=== PATIENT | male | born 1970 | race American Indian/Alaskan Native ===

== ENCOUNTER 2019-01-29 10:34 | Emergency (ER) | payer OTHER ==
[2019-01-29] MEDS ORDERED: ASPIRIN PO ONE (10:50)
[2019-01-29 11:15] LABS: Basophils % (Auto) 0.6 % (0.0-1.8); Eosinophils # (Auto) 0.2 K/mm3 (0.0-0.4); Eosinophils % (Auto) 2.1 % (0.0-4.3); Hematocrit 39.2 % (35.5-45.6); Hemoglobin 13.7 gm/dl (11.8-15.2); Lymphocytes # (Auto) 2.3 K/mm3 (1.2-5.4); Lymphocytes % (Auto) 28.7 % (13.4-35.0); Mean Corpuscular HGB Conc 35 % (32-34); Mean Corpuscular Volume 88 fl (84-94); Monocytes # (Auto) 0.7 K/mm3 (0.0-0.8); Monocytes % (Auto) 8.7 % (0.0-7.3); Platelet Count 323 K/mm3 (140-440); Red Blood Count 4.46 M/mm3 (3.65-5.03); Red Cell Distribution Width 15.9 % (13.2-15.2)
[2019-01-29 11:29] LABS: BUN/Creatinine Ratio 14; Blood Urea Nitrogen 14 mg/dL (9-20); Calcium 9.7 mg/dL (8.4-10.2); Hemolysis Index 11
--- NOTE | 2019-01-29 11:40 | Emergency Department Report ---
ED Chest Pain HPI - General Chief Complaint: Chest Pain Stated Complaint: CHEST AND BACK PAIN Time Seen by Provider: 01/29/19 11:23 Source: patient Mode of arrival: Ambulatory Limitations: No Limitations - History of Present Illness Initial Comments: 48-year-old -[place] male presents to the emergency department with complaint of some pain to the left upper back that has been radiating around to the left side of the chest. This started about 3 days ago and has been pretty constant with throbbing pain. However at the time of my examination the chest pain has resolved and the patient just has the throbbing back pain. He has tried some Tums, Maalox, and some other jqic-btw-mofaheu pain medication without any relief. He is a former smoker. He has a history of hypertension. He goes to [facility] for primary care. He has some questionable family history of cardiac disease with a sister who has a pacemaker. Recent travel or sick contacts at home. He denies any shortness of breath, fever, nausea, vomiting, diaphoresis or lower extremity edema. - Related Data Allergies Allergy/AdvReac Type Severity Reaction Status Date / Time No Known Allergies Allergy Unverified 01/29/19 10:35 Heart Score - HEART Score History: Slightly suspicious EKG: Normal Age: 45-65 Risk factors: 1-2 risk factors Troponin: < normal limit HEART Score: 2 - Critical Actions Critical Actions: 0-3 pts:0.9-1.7%risk of adverse cardiac event.Candidate for discharge ED Review of Systems ROS: Stated complaint: CHEST AND BACK PAIN Other details as noted in HPI Comment: All other systems reviewed and negative Constitutional: denies: chills, fever Eyes: denies: eye pain, vision change ENT: denies: ear pain, throat pain Respiratory: denies: cough, shortness of breath Cardiovascular: chest pain. denies: palpitations Gastrointestinal: denies: abdominal pain, vomiting Genitourinary: denies: dysuria, discharge Musculoskeletal: back pain. denies: arthralgia Skin: denies: rash, lesions Neurological: denies: headache, weakness ED Past Medical Hx - Past Medical History Hx Hypertension: Yes - Surgical History Past Surgical History?: No - Social History Smoking Status: Former Smoker Substance Use Type: Prescribed ED Physical Exam - General Limitations: No Limitations - Other Other exam information: GENERAL: The patient is well-developed well-nourished. HENT: Normocephalic. Atraumatic. Patient has moist mucous membranes. EYES: Extraocular motions are intact. NECK: Supple. Trachea is midline. CHEST/LUNGS: Clear to auscultation. There is no respiratory distress noted. HEART/CARDIOVASCULAR: Regular. There is no tachycardia. There is no murmur. ABDOMEN: Abdomen is soft, nontender. Patient has normal bowel sounds. There is no abdominal distention. SKIN: Skin is warm and dry. NEURO: The patient is awake, alert, and oriented. The patient is cooperative. The patient has no focal neurologic deficits. The patient has normal speech. MUSCULOSKELETAL: There is no tenderness or deformity. There is no limitation range of motion. There is no evidence of acute injury. BACK: No midline thoracic or lumbar tenderness to palpation, step-off or deformity. ED Course Vital Signs 01/29/19 01/29/19 10:48 15:06 Temperature 98.1 F Pulse Rate 84 67 Respiratory 18 20 Rate Blood Pressure 151/99 Blood Pressure 159/110 [Right] O2 Sat by Pulse 99 Oximetry RIKI score - Riki Score Age > 65: (0) No Aspirin use within the Past 7 Days: (0) No 3 or more CAD Risk Factors: (0) No 2 or more Angina events in past 24 hrs: (1) Yes Known CAD with more than 50% Stenosis: (0) No Elevated Cardiac Markers: (0) No ST Deviation Greater than 0.5mm: (0) No RIKI Score: 1 ED Medical Decision Making - Lab Data Result diagrams: 01/29/19 11:01 01/29/19 11:01 - EKG Data -: EKG Interpreted by Ks EKG shows normal: sinus rhythm, axis, intervals, QRS complexes, ST-T waves Rate: normal - EKG Data When compared to previous EKG there are: previous EKG unavailable Interpretation: normal EKG - Radiology Data Radiology results: image reviewed interpreted by me: Chest x-ray does not show any acute process. There are no pleural effusions, obvious pneumonia and there is no pneumothorax. - Medical Decision Making This patient presents to the emergency department with a three-day history of some pain to the left upper back, towards the inside of the scapula, that radiates around to the chest. No complaints of any shortness of breath, nausea, vomiting or diaphoresis. EKG is normal without ST elevation VT, ischemia or dysrhythmia. Patient's labs have been unremarkable including negative troponins 2 and a negative d-dimer. Chest x-ray did not show any pneumonia, pleural effusions, pneumothorax, focal consolidation, or any other acute process. The patient's only risk factors are hypertension and some questionable family history. He is low on the heart score criteria and low RIKI score. His back pain seems to be the more consistent issue with some intermittent radiation to the chest. He appears safe for discharge home at this time and has been encouraged to see his primary care physician but has also been given a referral for cardiology for outpatient follow-up. He will return to the emergency department with any return of his chest pain, worsening of his symptoms, or with any acute distress. - Differential Diagnosis VT, PE, GERD, costochondritis, gas pains Critical Care Time: No Critical care attestation.: If time is entered above; I have spent that time in minutes in the direct care of this critically ill patient, excluding procedure time. ED Disposition Clinical Impression: Intermittent chest pain Back pain Qualifiers: Back pain location: thoracic back pain Chronicity: unspecified Back pain laterality: left Qualified Code(s): M54.6 - Pain in thoracic spine Hypertension Qualifiers: Hypertension type: essential hypertension Qualified Code(s): I10 - Essential (primary) hypertension Disposition: DC- TO HOME OR SELFCARE Is pt being admited?: No Condition: Stable Instructions: Chest Pain (ED), Hypertension (ED), Back Pain (ED) Additional Instructions: Please follow-up with your primary care physician in the next few days. I'm giving you a referral for a local rug cleaning supervisor, Dr. Barajas, to follow up rega rding your intermittent chest pains. Please return to the emergency department immediately with any worsening of your symptoms, or if any acute distress. Referrals: [facility] [Outside] - 2-3 Days CORAL BARAJAS MD [Staff Physician] - 2-3 Days
[2019-01-29] MEDS ORDERED: MYLICON PO ONE (13:11)
--- NOTE | 2019-01-29 14:04 | XRay Report ---
CHEST 2 VIEWS INDICATION / CLINICAL INFORMATION: Chest pain for 3 days.. COMPARISON: None available. FINDINGS: SUPPORT DEVICES: None. HEART / MEDIASTINUM: The heart size and pulmonary vasculature are normal. The aorta is normal in tenisha hayden. LUNGS / PLEURA: No significant pulmonary or pleural abnormality. No pneumothorax. ADDITIONAL FINDINGS: There is mild thoracic spondylosis. IMPRESSION: No acute findings. Signer Name: Abilio Santos MD Signed: 01/29/2019 11:25 AM Workstation Name: [id number]
[2019-01-29 15:08] VITALS: BP 159/110
== END 2019-01-29 15:06 | disposition home or self-care (01) ==
LOC: ED 10:34
DX: I10 Essential (primary) hypertension (principal); R07.89 Other chest pain; M54.6 Pain in thoracic spine; M54.5 Low back pain; Z87.891 Personal history of nicotine dependence
CPT/HCPCS: 36415; 71046; 80048; 84484; 85025; 85379; 93005; 93010; 99284

== ENCOUNTER 2021-03-01 18:06 | Emergency (ER) | payer BC, OTHER, SELFPAY ==
[2021-03-01] MEDS ORDERED: ACETAMINOPHEN 325 MG TAB PO ONE (19:34)
--- NOTE | 2021-03-01 20:02 | XRay Report ---
CHEST 2 VIEWS INDICATION: cough and fever. COMPARISON: 01/29/2019. FINDINGS: Support devices: None. Heart: Within normal limits. Lungs/Pleura: No acute air space or interstitial disease. No significant pleural effusion. IMPRESSION: No acute findings. Signer Name: Avel Norton MD Signed: 03/01/2021 7:57 PM Workstation Name: [id number]
--- NOTE | 2021-03-01 21:23 | Emergency Department Report ---
- General Chief Complaint: Fever Stated Complaint: POSS COVID Source: patient Mode of arrival: Ambulatory Limitations: No Limitations - History of Present Illness Initial Comments: 50-year-old -[place] male obese presents to the emergency room for cough and body aches x2 days. Patient states that fever started today. Patient is unvaccinated. Has not been Covid tested. Positive exposure. Primary care provider at [facility]. Patient is a past medical history of hypertension reports he is on a water pill and some other pill he is not sure of. MD Complaint: fever, cough Onset/Timin -: days(s), This afternoon Severity: moderate Consistency: intermittent Improves With: nothing Context: sick contacts Associated Symptoms: fever, chills, cough, other (Generalized body aches) Treatments Prior to Arrival: none - Related Data Allergies Allergy/AdvReac Type Severity Reaction Status Date / Time No Known Allergies Allergy Unverified 01/29/19 10:35 ED Review of Systems ROS: Stated complaint: POSS COVID Other details as noted in HPI Comment: All other systems reviewed and negative ED Past Medical Hx - Past Medical History Previous Medical History?: Yes Hx Hypertension: Yes - Surgical History Past Surgical History?: No - Social History Smoking Status: Never Smoker Substance Use Type: None ED Physical Exam - General Limitations: No Limitations General appearance: alert, in no apparent distress - Head Head exam: Present: atraumatic, normocephalic - Eye Eye exam: Present: normal appearance - ENT ENT exam: Present: mucous membranes moist - Neck Neck exam: Present: normal inspection - Respiratory Respiratory exam: Present: normal lung sounds bilaterally. Absent: respiratory distress - Cardiovascular Cardiovascular Exam: Present: tachycardia - GI/Abdominal GI/Abdominal exam: Present: soft. Absent: distended, tenderness - Back Exam Back exam: Present: normal inspection - Neurological Exam Neurological exam: Present: alert, oriented X3, normal gait - Psychiatric Psychiatric exam: Present: normal affect, normal mood - Skin Skin exam: Present: warm, dry, intact, normal color. Absent: rash ED Course Vital Signs 03/01/21 19:22 Temperature 102.0 F H Pulse Rate 104 H Respiratory 16 Rate Blood Pressure 157/92 O2 Sat by Pulse 96 Oximetry ED Medical Decision Making - Lab Data Result diagrams: 03/01/21 21:11 - Medical Decision Making [facility] [address] [place] [address] XRay Report Signed Patient: CHAPITO MARRERO MR#: [id number] : 1970 Acct:[id number] Age/Sex: 50 / M ADM Date: 03/01/21 Loc: ED Attending Dr: Ordering Physician: JOSSY MOSELEY MD Date of Service: 03/01/21 Procedure(s): XR chest routine 2V Accession Number(s): [id number] cc: JOSSY MOSELEY MD Fluoro Time In Minutes: CHEST 2 VIEWS INDICATION: cough and fever. COMPARISON: 01/29/2019. FINDINGS: Support devices: None. Heart: Within normal limits. Lungs/Pleura: No acute air space or interstitial disease. No significant pleural effusion. IMPRESSION: No acute findings. Signer Name: Avel Norton MD Signed: 03/01/2021 7:57 PM Workstation Name: [id number] Transcribed By: ES Dictated By: Avel Nroton MD Electronically Authenticated By: Avel Norton MD Signed Date/Time: 03/01/211956 DD/ 56 TD/TT: Print Cancel Critical care attestation.: If time is entered above; I have spent that time in minutes in the direct care of this critically ill patient, excluding procedure time. ED Disposition Clinical Impression: Suspected COVID-19 virus infection Disposition: DC-01 TO HOME OR SELFCARE Is pt being admited?: No Does the pt Need Aspirin: No Condition: Stable Additional Instructions: Recommend Tylenol ibuprofen for fever body aches. [id number] Robitussin. Increase your fluid intake. Recommend Covid vaccination and Covid testing. Follow-up with your primary care provider. Chest x-ray is negative for any abnormalities blood work is stable. Your symptoms appear most consistent with a nonspecific viral syndrome. However, given this current pandemic, COVID-19 is in the differential of possibilities. I do recommend outpatient Covid 19 testing. In the meantime, isolate/quarantine yourself and stay away from anyone who is elderly, immunocompromised or chronically ill. You can use ibuprofen every 6-8 hours and Tylenol every 4-8 hours, using the dosing on the back of the bottle, as needed f or any fever or body aches. Return to the emergency department with any worsening of your symptoms, development of chest pain or shortness of breath, or with any acute distress. Referrals: ADITI JUNIOR MD [Primary Care Provider] - 3-5 Days Forms: AMA Form, Work/School Release Form(ED) Time of Disposition: 22:00
[2021-03-01 21:44] LABS: Hemoglobin 13.4 gm/dl (11.8-15.2); Mean Corpuscular HGB Conc 34 % (32-34); Mean Corpuscular Volume 89 fl (84-94); Platelet Count 279 K/mm3 (140-440); Red Blood Count 4.41 M/mm3 (3.65-5.03); Red Cell Distribution Width 15.9 % (13.2-15.2)
[2021-03-01 21:59] LABS: Alanine Aminotransferase 26 units/L (7-56); Albumin 4.4 g/dL (3.9-5); BUN/Creatinine Ratio 12; Blood Urea Nitrogen 14 mg/dL (9-20); Calcium 9.1 mg/dL (8.4-10.2); Hemolysis Index 5
[2021-03-01 22:57] LABS: RBC Morphology Normal; Total Cells Counted 100
[2021-03-01 23:19] VITALS: BP 142/84
== END 2021-03-01 22:50 | disposition home or self-care (01) ==
LOC: ED 18:06
DX: Z20.822 Contact with and (suspected) exposure to COVID-19 (principal); I10 Essential (primary) hypertension
CPT/HCPCS: 36415; 71046; 80053; 85007; 85025; 85379; 99283